=== PATIENT | male | born 1950 | race Hispanic/Latino ===

== ENCOUNTER 2019-02-02 20:07 | Emergency (ER) | payer MEDICARE ==
[2019-02-02] MEDS ORDERED: LIDOCAINE HCL 1% 20 ML VIAL ONE (20:56)
== END 2019-02-02 22:17 | disposition home or self-care (01) ==
LOC: EDH 20:07
DX: L02.211 Cutaneous abscess of abdominal wall (principal); E11.9 Type 2 diabetes mellitus without complications; I10 Essential (primary) hypertension; F41.9 Anxiety disorder, unspecified
CPT/HCPCS: 10060; 82948

== ENCOUNTER 2019-03-11 17:39 | Observation (INO) | payer MEDICARE ==
[~2019-03-11] VITALS: Ht 172.7 cm; Wt 90.7 kg
[2019-03-11] MEDS ORDERED: ASPIRIN 325 MG TABLET ONE (17:51)
[2019-03-11 18:09] LABS: BASOPHILS % (AUTO) 1.5 % (0.0-5.0); EOSINOPHILS % (AUTO) 3.7 % (0.0-8.0); HEMATOCRIT 41.8 % (42-54); LYMPHOCYTES % (AUTO) 24.8 % (21.0-51.0); MEAN CORPUSCULAR HEMOGLOBIN 27.9 pg (27.0-33.0); MEAN CORPUSCULAR HGB CONC 34.2 g/dL (32.0-36.0); MEAN CORPUSCULAR VOLUME 81.6 fL (79-99); MONOCYTES % (AUTO) 10.6 % (3.0-13.0); NEUTROPHILS % (AUTO) 59.4 % (40.0-77.0); PLATELET COUNT (AUTO) 280 K/uL (130-400); RED BLOOD CELL COUNT(AUTO) 5.13 MIL/uL (4.50-6.20); RED CELL DISTRIBUTION WIDTH 15.5 % (11.0-15.5)
[2019-03-11 18:21] LABS: CREATININE 1.3 mg/dL (0.5-1.5); POTASSIUM 4.3 mmol/L (3.5-5.1)
[2019-03-11 18:23] LABS: INR 1.01 (0.85-1.15); PARTIAL THROMBOPLASTIN TIME 24.6 SEC (26.3-35.5); PROTHROMBIN TIME 10.6 SEC (9.6-11.6)
[2019-03-11 18:35] LABS: ALBUMIN 3.9 g/dL (3.5-5.0); BILIRUBIN,TOTAL 0.6 mg/dL (0.2-1.0); TOTAL PROTEIN, SERUM 7.7 g/dL (6.0-8.3)
[2019-03-11 18:36] LABS: B-TYPE NATRIURETIC PEPTIDE 14 pg/mL (0-100)
[2019-03-11] MEDS ORDERED: NITROGLYCERIN 1GM/1 INCH PACKET TD ONE (18:37)
[2019-03-11 18:59] LABS: APPEARANCE,URINE Clear (CLEAR); BILIRUBIN,URINE Negative (NEGATIVE); COLOR,URINE Yellow (YELLOW); GLUCOSE, URINE (UA) Negative (NEGATIVE); KETONES,URINE Negative (NEGATIVE); LEUKOCYTE ESTERASE ,URINE Negative (NEGATIVE); NITRATE,URINE Negative (NEGATIVE); OCCULT BLOOD,URINE Negative (NEGATIVE); PH,URINE 5.5 (5.0-8.0); PROTEIN,URINE Negative (NEGATIVE)
[2019-03-11] MEDS ORDERED: MORPHINE SULFATE 2 MG/ML 1ML SYG IV PRN (21:00)
[2019-03-11] MEDS: NITROGLYCERIN 1GM/1 INCH PACKET TD SCH (21:00)
[2019-03-11] MEDS: FAMOTIDINE/PF 20 MG/2 ML VIAL IV SCH (21:00)
[2019-03-11] MEDS: SODIUM CHLORIDE 0.9% 1000ML 1,000 ML IV SCH (21:15)
[2019-03-11] MEDS ORDERED: SODIUM CHLORIDE 0.9% 1000ML 1,000 ML IV ONE (23:34)
[2019-03-11] MEDS ORDERED: ALPRAZOLAM 0.25 MG TABLET ONE (23:49)
[2019-03-12] MEDS: NITROGLYCERIN 1GM/1 INCH PACKET TD SCH ×3 (05:00→20:15)
[2019-03-12 09:14] VITALS: BP 132/75
[2019-03-12] MEDS: FAMOTIDINE/PF 20 MG/2 ML VIAL IV SCH ×2 (10:02→22:27)
[2019-03-12] MEDS ORDERED: GLUCAGON 1MG KIT 1 MG ML IM PRN (12:00)
[2019-03-12] MEDS ORDERED: DEXTROSE 50%-WATER 50 ML DISP.SYRIN IV PRN (12:00)
[2019-03-12 12:07] VITALS: BP 136/70
[2019-03-12] MEDS ORDERED: UBIQ100C3 PO (12:49)
[2019-03-12] MEDS ORDERED: ROSU20TA31 PO (12:49)
[2019-03-12] MEDS ORDERED: NIAC500T22 PO (12:49)
[2019-03-12] MEDS ORDERED: METF-444 PO (12:49)
[2019-03-12] MEDS ORDERED: SAW/1TAB2 PO (12:49)
[2019-03-12] MEDS ORDERED: FISH1CAP27 PO (12:49)
[2019-03-12] MEDS ORDERED: TAMS-1 PO (12:49)
[2019-03-12] MEDS ORDERED: ALPR0.5T8 PO (12:49)
[2019-03-12] MEDS ORDERED: ESOM20CA31 PO (12:49)
[2019-03-12] MEDS ORDERED: LISI10TA7 PO (12:49)
[2019-03-12] MEDS ORDERED: NEBI2.5T5 PO (12:49)
[2019-03-12] MEDS ORDERED: ASPI-1197 PO (12:56)
[2019-03-12] MEDS ORDERED: MAGN100T PO (12:56)
[2019-03-12] MEDS ORDERED: REGADENOSON 0.4 MG/5 ML PF SYG IVP SCH (16:00)
[2019-03-12] MEDS: INSULIN HUMULIN R 100 UNIT/ML 3ML SQ SCH ×2 (16:30→21:00)
[2019-03-12 17:28] VITALS: BP 138/80
[2019-03-12] MEDS: ASPIRIN 81MG TAB.CHEW PO SCH (17:58)
[2019-03-12] MEDS: ENOXAPARIN SODIUM 30 MG/0.3 ML SQ SCH (17:59)
[2019-03-12 19:46] VITALS: BP 121/86
[2019-03-12] MEDS: SODIUM CHLORIDE 0.9% 1000ML 1,000 ML IV SCH (22:56)
[2019-03-12 23:51] VITALS: BP 95/50
[2019-03-13 04:00] VITALS: BP 104/68
[2019-03-13] MEDS: NITROGLYCERIN 1GM/1 INCH PACKET TD SCH (04:15)
[2019-03-13 06:06] LABS: BASOPHILS % (AUTO) 1.3 % (0.0-5.0); EOSINOPHILS % (AUTO) 4.5 % (0.0-8.0); LYMPHOCYTES % (AUTO) 26.1 % (21.0-51.0); MEAN CORPUSCULAR VOLUME 82.4 fL (79-99); MONOCYTES % (AUTO) 10.8 % (3.0-13.0); NEUTROPHILS % (AUTO) 57.3 % (40.0-77.0); PLATELET COUNT (AUTO) 246 K/uL (130-400); RED BLOOD CELL COUNT(AUTO) 4.61 MIL/uL (4.50-6.20); RED CELL DISTRIBUTION WIDTH 15.6 % (11.0-15.5); WHITE BLOOD COUNT (AUTO) 5.8 K/uL (4.8-10.8)
[2019-03-13 06:19] LABS: ALBUMIN 3.3 g/dL (3.5-5.0); BILIRUBIN,TOTAL 0.8 mg/dL (0.2-1.0); CREATININE 1.2 mg/dL (0.5-1.5); POTASSIUM 4.3 mmol/L (3.5-5.1); TOTAL PROTEIN, SERUM 6.6 g/dL (6.0-8.3)
[2019-03-13] MEDS: INSULIN HUMULIN R 100 UNIT/ML 3ML SQ SCH ×2 (07:03→11:09)
[2019-03-13 08:06] VITALS: BP 98/72
[2019-03-13] MEDS: FAMOTIDINE/PF 20 MG/2 ML VIAL IV SCH (09:04)
[2019-03-13] MEDS: ASPIRIN 81MG TAB.CHEW PO SCH (09:04)
[2019-03-13] MEDS: ENOXAPARIN SODIUM 30 MG/0.3 ML SQ SCH (09:25)
--- NOTE | 2019-03-13 11:00 | NUR ---
CM NOTE PT IN OBS STATUS, NO CONCERNS VOICED TO RN, NO TRIGGERS TO CM, DETAILED CM ASSESSMENT DEFERRED AT THIS TIME Addendum: 03/13/19 at 2038 by MIREYA MARES RN CM Amended: Links added.
[2019-03-13 11:10] VITALS: BP 114/73
--- NOTE | 2019-03-13 12:20 | NUR ---
DISCHARGE DISCHARGE TEACHING DONE WITH PATIENT AND USING TEACHBACK METHOD, VERBALIZED UNDERSTANDING. NO NOTED SOB OR DISTRESS. PER PATIENT, NO CHEST DISCOMFORT. NO NEW PRESCRIPTIONS. PT AWARE OF NEED TO SET UP APPOINTMENT WITH ANGIE MUNOZ AND FOLLOW UP WITH DR. PARRA, CARDIOLOGY. IV REMOVED, CATH TIP INTACT. TELEPAK REMOVED AND RETURNED. PT INSIST ON AMBULATING OUT OF FACILITY. DELICATESSEN STORE MANAGER AMBULATED PT OUT OF FACILITY.
== END 2019-03-13 13:21 | disposition home or self-care (01) ==
LOC: EDH 17:39 → EDHIP 20:54 → 4AH 03-12 08:02
PROVIDERS: ADMIT Internal Medicine; ATTEND Internal Medicine
DX: I25.110 Atherosclerotic heart disease of native coronary artery with unstable angina pectoris (principal); N17.9 Acute kidney failure, unspecified; I10 Essential (primary) hypertension; E11.9 Type 2 diabetes mellitus without complications; E78.5 Hyperlipidemia, unspecified; F41.9 Anxiety disorder, unspecified; I25.2 Old myocardial infarction; K21.9 Gastro-esophageal reflux disease without esophagitis; R00.1 Bradycardia, unspecified; R94.31 Abnormal electrocardiogram [ECG] [EKG]; Z90.49 Acquired absence of other specified parts of digestive tract; Z95.5 Presence of coronary angioplasty implant and graft; Z79.82 Long term (current) use of aspirin; Z79.84 Long term (current) use of oral hypoglycemic drugs; Z79.899 Other long term (current) drug therapy
CPT/HCPCS: 36415 ×3; 71045; 78452; 80053 ×2; 81003; 82550 ×2; 82948 ×5; 83036; 83880; 84484 ×3; 85025 ×2; 85610; 85730; 93005 ×3; 93017; 96372 ×2; 96374; 96375; 96376 ×2; 99284; A9500 ×2; G0378 ×40; J1650 ×2; J2785; J3490 ×3; J7030